=== PATIENT | female | born 1995 | race Caucasian/White ===

== ENCOUNTER 2019-05-06 07:56 | Inpatient (IN) | payer SELFPAY | END 2019-05-08 12:12 | disposition home or self-care (01) | DRG 807 | PROVIDERS: Admitting Provider Obstetrics & Gynecology; Family Provider Family Medicine; Visit Provider Obstetrics & Gynecology | DX: O48.0 Post-term pregnancy (principal); Z37.0 Single live birth; O99.824 Streptococcus B carrier state complicating childbirth; Z3A.41 41 weeks gestation of pregnancy; Z28.21 Immunization not carried out because of patient refusal ==

== ENCOUNTER → 2021-03-13 10:15 | Outpatient (BNVA) | payer SELFPAY | PROVIDERS: Family Provider Family Medicine; Visit Provider Nurse Practitioner Women's Health | DX: O09.299 Supervision of pregnancy with other poor reproductive or obstetric history, unspecified trimester (principal); O09.30 Supervision of pregnancy with insufficient antenatal care, unspecified trimester; Z3A.00 Weeks of gestation of pregnancy not specified | CPT/HCPCS: 80307; 81000; 81025; 85027; 86592; 86762; 86803; 86850; 86900; 87086; 87340 ==

== ENCOUNTER → 2021-03-21 13:32 | Outpatient (BNVA) | payer SELFPAY | PROVIDERS: Family Provider Family Medicine; Visit Provider Obstetrics & Gynecology | DX: Z34.80 Encounter for supervision of other normal pregnancy, unspecified trimester (principal) | CPT/HCPCS: 81000; 87491; 87591; 87661; 88175 ==

== ENCOUNTER → 2021-04-11 15:55 | Outpatient (BNVA) | payer SELFPAY | PROVIDERS: Family Provider Family Medicine; Visit Provider Obstetrics & Gynecology | DX: Z34.80 Encounter for supervision of other normal pregnancy, unspecified trimester (principal) | CPT/HCPCS: 81000 ==

== ENCOUNTER → 2021-05-13 16:22 | Outpatient (BNVA) | payer SELFPAY | PROVIDERS: Family Provider Family Medicine; Visit Provider Obstetrics & Gynecology | DX: O09.299 Supervision of pregnancy with other poor reproductive or obstetric history, unspecified trimester (principal); O09.30 Supervision of pregnancy with insufficient antenatal care, unspecified trimester; Z3A.00 Weeks of gestation of pregnancy not specified | CPT/HCPCS: 81000; 82950; 84443; 85025 ==

== ENCOUNTER → 2021-05-23 11:08 | Outpatient (BNVA) | payer SELFPAY | PROVIDERS: Family Provider Family Medicine; Visit Provider Obstetrics & Gynecology | DX: Z34.80 Encounter for supervision of other normal pregnancy, unspecified trimester (principal) | CPT/HCPCS: 81000 ==

== ENCOUNTER → 2021-06-06 11:00 | Outpatient (BNVA) | payer SELFPAY | PROVIDERS: Family Provider Family Medicine; Visit Provider Obstetrics & Gynecology | DX: O99.019 Anemia complicating pregnancy, unspecified trimester (principal); Z3A.00 Weeks of gestation of pregnancy not specified | CPT/HCPCS: 81000; 85018 ==

== ENCOUNTER → 2021-06-20 12:21 | Outpatient (BNVA) | payer SELFPAY | PROVIDERS: Family Provider Family Medicine; Visit Provider Obstetrics & Gynecology | DX: Z34.80 Encounter for supervision of other normal pregnancy, unspecified trimester (principal) | CPT/HCPCS: 81000 ==

== ENCOUNTER 2021-07-05 14:18 | Outpatient (CLI) | payer SELFPAY ==
[2021-07-05 14:18] VITALS: BMI 24.1
[2021-07-05 14:25] VITALS: RESP 16
--- NOTE | 2021-07-05 14:25 | US_ITS ---
WS: [id number] ULTRASOUND OB LIMITED TECHNIQUE: Limited ultrasound examination of the fetus. CLINICAL INFORMATION: EVELYNE AND GROWTH COMPARISON: March 21, 2021 FINDINGS: Closed cervix 3.9 cm Single interuterine gestation. presentation is vertex Placental location is anterior. Placenta grade: 1 heart rate 124 BPM. Anatomy: BDP: 8.5 cm = 34 weeks 3 days HC: 30.8 cm = 34 weeks 3 days AC: 29.6 cm = 33 weeks 4 days FEMUR LENGTH: 6.6 cm = 34 weeks 2 days Estimated weight: 5 lbs. 1 oz. 16th percentile EGA by ultrasound: 34 weeks 1 day BERNARDO by ultrasound: August 15, 2021 Biophysical profile 8 out of 8. breathin movement: 2 tone: 2 Amniotic fluid: 2 US/US OB BPP wo NST [id number] IMPRESSION: 1. Normal biophysical profile 8 out of 8 2. growth parameters at the 10th percentile or lower for gestational age .
[2021-07-05 14:33] VITALS: BP 107/60; PULSE 81; TEMP 36.4
[2021-07-05 14:49] VITALS: BP 105/60; PULSE 79
--- NOTE | 2021-07-05 15:04 | US_ITS ---
WS: [id number] ULTRASOUND OB LIMITED TECHNIQUE: Limited ultrasound examination of the fetus. CLINICAL INFORMATION: EVELYNE AND GROWTH COMPARISON: March 21, 2021 FINDINGS: Closed cervix 3.9 cm Single interuterine gestation. presentation is vertex Placental location is anterior. Placenta grade: 1 heart rate 124 BPM. Anatomy: BDP: 8.5 cm = 34 weeks 3 days HC: 30.8 cm = 34 weeks 3 days AC: 29.6 cm = 33 weeks 4 days FEMUR LENGTH: 6.6 cm = 34 weeks 2 days Estimated weight: 5 lbs. 1 oz. 16th percentile EGA by ultrasound: 34 weeks 1 day BERNARDO by ultrasound: August 15, 2021 Biophysical profile 8 out of 8. breathin movement: 2 tone: 2 Amniotic fluid: 2 US/US OB limited [id number] IMPRESSION: 1. Normal biophysical profile 8 out of 8 2. growth parameters at the 10th percentile or lower for gestational age .
[2021-07-05 15:25] VITALS: BP 109/66; PULSE 86
[2021-07-05 15:40] VITALS: BP 104/60; PULSE 75
== END 2021-07-05 15:55 | disposition home or self-care (01) ==
LOC: OPOB 14:21 → OBGYN 14:22
PROVIDERS: Family Provider Family Medicine; Visit Provider Obstetrics & Gynecology
DX: O36.8931 Maternal care for other specified fetal problems, third trimester, fetus 1 (principal); Z3A.34 34 weeks gestation of pregnancy; O36.5931 Maternal care for other known or suspected poor fetal growth, third trimester, fetus 1
CPT/HCPCS: 59025; 76815; 76819; 81000; 87081; 99211

== ENCOUNTER → 2021-07-22 10:10 | Outpatient (BNVA) | payer SELFPAY | PROVIDERS: Family Provider Family Medicine; Visit Provider Obstetrics & Gynecology | DX: Z34.80 Encounter for supervision of other normal pregnancy, unspecified trimester (principal); Z3A.00 Weeks of gestation of pregnancy not specified | CPT/HCPCS: 81000; 87086 ==

== ENCOUNTER 2021-07-31 16:50 | Inpatient (IN) | payer SELFPAY ==
[2021-07-31] VITALS (8 sets, daily range): BP systolic 107–129; BP diastolic 61–83; PULSE 65–98; RESP 14–17; TEMP 36.6; O2SAT 96–97; BMI 24.3
[2021-07-31] MEDS: dextrose 5%-lactated ringers 1,000 ML 125 ML IV (17:08)
[2021-07-31] MEDS: oxytocin 30 UNIT/500 ML BAG 600 UNIT IV (17:08)
[2021-07-31 17:16] LABS: Basophils % 0.1 %; Eosinophils % 0.4 %; Hematocrit 40.3 % (37.0-47.0); Hemoglobin 13.3 g/dL (11.5-15.3); Lymphocytes # 1.6 10^3/uL (0.8-4.8); Lymphocytes % 16.2 %; Mean Corpuscular Hemoglobin 30.2 pg (28.0-34.0); Mean Corpuscular Volume 91.4 fl (81-99); Mean Platelet Volume 10.1 fL (7.4-10.4); Monocytes # 0.5 10^3/uL (0.2-0.9); Monocytes % 4.5 %; Neutrophils # 7.84 10^3/uL (1.8-7.7); Neutrophils % 78.4 %; Nucleated Red Blood Cells % 0 %; Platelet Count 188 10^3/cmm (130-400); Red Blood Count 4.41 10^6/uL (4.1-5.3); Red Cell Distribution Width 13.4 % (12.1-15.1)
--- NOTE | 2021-07-31 17:19 | PM.DELIVERY ---
Delivery Note: Date of delivery: July 31, 2021 Pre-delivery diagnoses: iup At 40 weeks 1 day Post-delivery diagnoses: same- delivered Procedure: Delivering Physician: Se Estimated blood loss (mL): 20 Findings: term female in the RICKY presentation Pre-Delivery Course: The patient presented to labor and delivery with complete cervical dilation and intact bag of water. Delivery: Once I arrived, the patient began pushing. The head delivered in the RICKY position over an intact perineum under no anesthesia. The nose and mouth were bulb suctioned. The shoulders and body delivered atraumatically. The baby was placed onto the mother's abdomen. The cord was clamped and cut. Cord blood was obtained. The placenta delivered spontaneously. It was inspected and found to be intact. Inspection of the perineum revealed no laceration and no repair required. Estimated blood loss 20 mL. Apgars on baby were 9 at 1 minute and 9 at 5 minutes. Weight of baby is pending. Mother and baby were stable post delivery. History History History 3 Term 2 Miscarriages/Ectopic 0 0 Living Children 2 Coding Level of Care Code Acute Mysql Database Administrator for Chg Omkar
[2021-07-31] MEDS: ibuprofen 800 mg tablet PO (21:18)
[2021-08-01 01:10] VITALS: BP 95/58; PULSE 65; RESP 14; O2SAT 96
[2021-08-01 04:37] VITALS: BP 105/64; PULSE 67; O2SAT 97
[2021-08-01 06:11] LABS: Hematocrit 33.9 % (37.0-47.0); Hemoglobin 11.2 g/dL (11.5-15.3); Mean Corpuscular Hemoglobin 30.4 pg (28.0-34.0); Mean Corpuscular Volume 91.9 fl (81-99); Mean Platelet Volume 9.7 fL (7.4-10.4); Platelet Count 156 10^3/cmm (130-400); Red Blood Count 3.69 10^6/uL (4.1-5.3); Red Cell Distribution Width 13.5 % (12.1-15.1); White Blood Count 9.5 10^3/uL (4.0-10.0)
--- NOTE | 2021-08-01 08:14 | P.DS_ITS ---
Discharge Providers Date of Admission: 07/31/21 16:50 Date of Discharge: August 01, 2021 Attending Provider at Admission: Sadie Saez MD Attending Provider at Discharge: Sadie Saez MD Reason for Visit Reason for Visit: Contractions Hospital Course Hospital Course The patient was admitted in active labor. She had spontaneous delivery of a term . She did well and was ready for discharge on day #1 Physical Exam Narrative: The patient is doing well. No concerns this morning. She is requesting discharge today. Const: COMMON NORMALS: no acute distress, average body habitus, patient oriented x3, no limitations, healthy appearing, alert and well nourished GENERAL APPEARANCE: cooperative, comfortable, well kempt and well developed ORIENTATION/CONSCIOUSNESS: Yes awake, Yes oriented to person, Yes oriented to place and Yes oriented to time Resp: COMMON NORMALS: normal respiratory effort EFFORT & INSPECTION: Yes able to speak in complete sentences GI: COMMON NORMALS: Soft to palpation and non-tender PALPATION: Yes Soft to palpation Extremity: COMMON NORMALS: no calf tenderness Neuro: COMMON NORMALS: patient oriented x3 SENSORIUM/ORIENTATION: Yes alert, Yes oriented to person, Yes oriented to place and Yes oriented to time Psych: APPEARANCE: Yes well kempt Discharge Data Studies Completed and Pending Laboratory Results WBC 9.5 10^3/uL (4.0-10.0) 08/01/21 06:00 RBC 3.69 10^6/uL (4.1-5.3) L 08/01/21 06:00 Hgb 11.2 g/dL (11.5-15.3) L 08/01/21 06:00 Hct 33.9 % (37.0-47.0) L 08/01/21 06:00 MCV 91.9 fl (81-99) 08/01/21 06:00 MCH 30.4 pg (28.0-34.0) 08/01/21 06:00 MCHC 33.0 g/dL (30.0-36.0) 08/01/21 06:00 RDW 13.5 % (12.1-15.1) 08/01/21 06:00 Plt Count 156 10^3/cmm (130-400) 08/01/21 06:00 MPV 9.7 fL (7.4-10.4) 08/01/21 06:00 Neut % (Auto) 78.4 % 07/31/21 16:55 Lymph % (Auto) 16.2 % 07/31/21 16:55 [place] % (Auto) 4.5 % 07/31/21 16:55 Eos % (Auto) 0.4 % 07/31/21 16:55 Baso % (Auto) 0.1 % 07/31/21 16:55 Neut # (Auto) 7.84 10^3/uL (1.8-7.7) H 07/31/21 16:55 Lymph # (Auto) 1.6 10^3/uL (0.8-4.8) 07/31/21 16:55 [place] # (Auto) 0.5 10^3/uL (0.2-0.9) 07/31/21 16:55 Eos # (Auto) 0.0 10^3/uL (0.0-0.8) 07/31/21 16:55 Baso # (Auto) 0.0 10^3/uL (0.0-0.1) 07/31/21 16:55 Nucleated RBC % (auto) 0 % 07/31/21 16:55 Nucleated RBCs # 0.0 /100WBC 07/31/21 16:55 Vitals Last Vital Signs Pulse 67 08/01/21 04:37 Resp 14 08/01/21 01:10 BP 105/64 08/01/21 04:37 Pulse Ox 97 08/01/21 04:37 Discharge Plan Discharge Patient Disposition: Home Condition: Stable Prescriptions: Continued prenat.vits,moe,[id number]-awpyg Tablet 1 tab PO DAILY 0RF Probiotic 3 billion cell capsule 3,000 mmu cells PO DAILY 0RF Rx Instructions: administer with a meal digestive enzymes Capsule 1 cap PO DAILY 0RF Rx Instructions: administer with food; swallow whole; do not crush/chew/dissolve/break/cut lecithin 518 mg capsule 518 mg PO BID 0RF easy birthing PO BID 0RF evening primrose oil 500 mg capsule 500 mg PO BID 0RF Rx Instructions: give with meal/snack ferrous fumarate 324 mg (106 mg iron) tablet 324 mg PO BID 0RF master gland PO TID 0RF calcium carbonate 260 mg calcium (648 mg) tablet 260 mg PO DAILY 0RF magnesium 30 mg tablet 30 mg PO DAILY 0RF Discharge Orders: Discharge Order (Routine); Ordered 08/01/21 Ordered By: Sadie Saez Patient Instructions: Depression (DC), Bleeding (DC), Preeclampsia and Eclampsia After Delivery (GEN), OB Discharge Report, OB Food/Drug Interaction Guide, OB Care at Home, Opioid Safety, OB Home Care, OB Proud Parent Packet, OB Vaginal Deliveries - [facility], Abnormal Bleeding Discharge Attestations Time Spent in Discharge Care*: less than 30 min Quality Metrics Clinical Quality Measures [ No reported AMI, CVA or VTE this stay] Coding Level of Care Code Acute Chg FW DC note
[2021-08-01 10:45] VITALS: BP 103/64; PULSE 88; RESP 16; TEMP 36.8; O2SAT 97
[2021-08-01] MEDS: prenatal vitamin Capsule 1 CAP PO (10:45)
[2021-08-01] MEDS: ibuprofen 800 mg tablet PO ×2 (10:45→15:25)
[2021-08-01 16:59] VITALS: PULSE 88; RESP 16; TEMP 36.8; O2SAT 97
[2021-08-01 19:29] VITALS: BP 99/60; PULSE 87; RESP 18; TEMP 36.5; O2SAT 98
== END 2021-08-01 19:05 | disposition home or self-care (01) | DRG 807 ==
LOC: OPOB 16:50 → OBGYN 16:50
PROVIDERS: Admitting Provider Obstetrics & Gynecology; Family Provider Family Medicine; Visit Provider Obstetrics & Gynecology
DX: O99.02 Anemia complicating childbirth (principal); Z37.0 Single live birth; D64.9 Anemia, unspecified; Z3A.40 40 weeks gestation of pregnancy
CPT/HCPCS: 36415; 59025; 59409; 81000; 85025; 85027; 87635; 99211

== ENCOUNTER 2023-02-25 02:22 | Observation (INO) | payer SELFPAY ==
[2023-02-25] VITALS (29 sets, daily range): BP systolic 63–144; BP diastolic 31–95; PULSE 81–137; RESP 10–20; TEMP 36.7–37.4; O2SAT 99–100; BMI 21.2
--- NOTE | 2023-02-25 02:36 | ED_ITS ---
HPI - General: Chief complaint: OB/Uterine Contractions Stated complaint: miscarrage, hemoraging Time Seen by Provider: 02/25/23 02:23 Source: patient Mode of arrival: ambulatory Limitations: no limitations History of Present Illness: 27-year-old female states she is 9 weeks she states she started having bleeding throughout the night she states that she believes she had passed prod ucts of conception states she had some heavy bleeding with passing clots she states she felt like it slowed down a little she denies any pain had some mild lightheadedness she denies any worsening proving factors. Associated symptoms: Deny abdominal pain, headache(s), nausea or vomiting Review of Systems Const: Denies: fever(s), chills, body aches or change in appetite Eyes: Denies: blurry vision or eye discomfort ENMT: Denies: throat pain or dental pain Card: Denies: chest pain Resp: Denies: dyspnea GI: Denies: abdominal pain, nausea, vomiting or diarrhea : Reports: vaginal bleeding Musc: Denies: neck pain or back pain Skin/Breast: Denies: rash Neuro: Denies: headache(s) PFSH ED PFSH: Medical History No pertinent past medical history neg dx- htn,dm,dvt/pe,thyroid PCP: none Surgical History No pertinent past surgical history Family History Denies family history of Colon cancer Ovarian cancer Diabetes Clotting disorder Breast cancer Bleeding disorder Cancer Hypertension Uterine cancer Stroke Physical Exam Const: COMMON NORMALS: patient oriented x3 HENMT: COMMON NORMALS: normocephalic and atraumatic HEAD & SCALP: normocephalic and atraumatic Neck/C-Spine: COMMON NORMALS: full ROM and supple Chest: COMMONS NORMALS: normal inspection of the chest Resp: COMMON NORMALS: normal respiratory effort Cardio: COMMON NORMALS: regular rhythm and No murmurs present (Cardio) RATE: tachycardic RHYTHM: regular rhythm GI: COMMON NORMALS: Normal to inspection, nondistended, normoactive bowel sounds present, Soft to palpation, non-tender and no masses PALPATION: Yes Soft to palpation : OTHER: Large amount of blood and clots in vaginal vault she did have clot stuck at the cervix it was removed Extremity: COMMON NORMALS: normal to inspection and full ROM Neuro: COMMON NORMALS: patient oriented x3, moves all extremities and no focal motor deficits Psych: COMMON NORMALS: mental status grossly normal, Normal thought process present and cooperative THOUGHT PROCESS: Normal thought process present Skin: COMMON NORMALS: no rashes or lesions noted and no wounds GENERAL SKIN EXAM: no rashes or lesions noted Course Vital Signs: Vital signs: Vital Signs Temperature 98.0 F 02/25/23 02:24 Pulse Rate 115 H 02/25/23 02:59 Respiratory Rate 18 02/25/23 02:59 Blood Pressure 91/66 02/25/23 02:59 Pulse Oximetry 100 02/25/23 02:59 Oxygen Delivery Me thod Room Air 02/25/23 02:44 MDM - OB/Uterine Contractions Medical Decision Making Patient presents here with vaginal bleeding she had a large amount of bleeding on pelvic exam her bleeding has slowed down since then her hemoglobin has basim pped 3 points her orthostatic vitals currently are normal and her blood pressure is improved did give her me supposed I did speak to the NURSING TECHNICIAN Dr. Travis verduzco still has some slight bleeding he is planning on taking her to have a D&C Medical Records I reviewed the patient's medical records. Lab Data I reviewed the patient's lab results. 02/25/23 03:33 Laboratory Results WBC 11.58 10^3/uL (3.29-11.43) H 02/25/23 02:30 RBC 4.21 10^6/uL (3.85-5.65) 02/25/23 02:30 Hgb 8.40 g/dL (11.27-16.99) L 02/25/23 03:33 Hct 26.8 % (36-47) L 02/25/23 03:33 MCV 86.0 fl (85-98) 02/25/23 02:30 MCH 27.6 pg (27-33) 02/25/23 02:30 MCHC 32.0 g/dL (30-55) 02/25/23 02:30 RDW 13.2 % (12.1-15.1) 02/25/23 02:30 Plt Count 215 10^3/cmm (157-399) 02/25/23 02:30 MPV 9.6 fL (7.4-10.4) 02/25/23 02:30 Neut % (Auto) 75.3 % 02/25/23 02:30 Lymph % (Auto) 17.5 % 02/25/23 02:30 [place] % (Auto) 4.6 % 02/25/23 02:30 Eos % (Auto) 2.0 % 02/25/23 02:30 Baso % (Auto) 0.3 % 02/25/23 02:30 Neut # (Auto) 8.71 10^3/uL (1.8-7.7) H 02/25/23 02:30 Lymph # (Auto) 2.0 10^3/uL (0.8-4.8) 02/25/23 02:30 [place] # (Auto) 0.5 10^3/uL (0.2-0.9) 02/25/23 02:30 Eos # (Auto) 0.2 10^3/uL (0.0-0.8) 02/25/23 02:30 Baso # (Auto) 0.0 10^3/uL (0.0-0.1) 02/25/23 02:30 Nucleated RBC % (auto) 0 % 02/25/23 02:30 Nucleated RBCs # 0.0 /100WBC 02/25/23 02:30 Ser , Semi-Qnt 94116.00 mIU/mL 02/25/23 02:30 Antibody Screen Negative 02/25/23 02:30 No radiology studies performed this visit Critical Care Time Critical Care Time: Critical Care Time: Yes Total Critical Care Time: 35 Attestation: The high probability of a clinically significant, sudden or life threatening deterioration of the patient's gu system(s) required my full and direct attention, intervention and personal management. The critical care time is as shown. This time is in addition to time spent performing any reported procedures but includes the following: [x] Data and vital sign review and interpretation [x] Patient assessment, examination and intervention [x] Documentation [x] Medication orders and management Discharge Plan Discharge Patient Disposition: Admitted As Inpatient Clinical Impression: Miscarriage Condition: Stable Prescriptions: No Action prenat.vits,moe,iec-wdsz-wvxyx Tablet 1 tab PO DAILY Probiotic 3 billion cell capsule 3,000 mmu cells PO DAILY Rx Instructions: administer with a meal digestive enzymes Capsule 1 cap PO DAILY Rx Instructions: administer with food; swallow whole; do not crush/chew/dissolve/break/cut lecithin 518 mg capsule 518 mg PO BID easy birthing PO BID evening primrose oil 500 mg capsule 500 mg PO BID Rx Instructions: give with meal/snack ferrous fumarate 324 mg (106 mg iron) tablet 324 mg PO BID master gland PO TID calcium carbonate 260 mg calcium (648 mg) tablet 260 mg PO DAILY magnesium 30 mg tablet 30 mg PO DAILY Coding Level of Care Code ED Teacher Adventure Education for Ellen Espitia
[2023-02-25 02:39] LABS: Basophils % 0.3 %; Eosinophils # 0.2 10^3/uL (0.0-0.8); Hematocrit 36.2 % (36-47); Lymphocytes % 17.5 %; Mean Corpuscular Hemoglobin 27.6 pg (27-33); Mean Platelet Volume 9.6 fL (7.4-10.4); Monocytes # 0.5 10^3/uL (0.2-0.9); Monocytes % 4.6 %; Neutrophils # 8.71 10^3/uL (1.8-7.7); Neutrophils % 75.3 %; Nucleated Red Blood Cells % 0 %; Platelet Count 215 10^3/cmm (157-399); Red Blood Count 4.21 10^6/uL (3.85-5.65); Red Cell Distribution Width 13.2 % (12.1-15.1); White Blood Count 11.58 10^3/uL (3.29-11.43)
[2023-02-25] MEDS: sodium chloride 0.9% 1,000 ML 999 ML IV ×2 (02:51→02:57)
[2023-02-25] MEDS: miSOPROStol 200 mcg Tablet 800 MCG PR (02:55)
--- NOTE | 2023-02-25 03:32 | PC.NURSE ---
Checked bleeding status of patient post medication admin. Pt still having moderated constant bleeding. Removed 2 blue chuxs pads and replaced. Dr Berg notified.
[2023-02-25 03:37] LABS: Hematocrit 26.8 % (36-47)
--- NOTE | 2023-02-25 04:12 | PC.NURSE ---
pt was removed from the bedpan at this time. pt had a small BM. pt is still having moderate bleeding
--- NOTE | 2023-02-25 05:42 | PM.OBGYHP ---
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 LMP approximately 9 weeks ago No care so far Presented to ER with vaginal bleeding, which began at 2330 on February 24, 2023 Bleeding progressed to large amount with large clots + cramping In ER, patient passed large amount of blood and clots Hgb 2300 11.2 0330 8.4 PMHx: none PSHx: none Meds: none NKDA Medications/Allergies Home Medications Medication Instructions Recorded Confirmed Last Taken Type prenat.vits,moe,eaa-mfzo-zwzvs 1 tab PO DAILY 03/13/21 09/09/21 Unknown History calcium carbonate 260 mg calcium 260 mg PO DAILY 03/21/21 09/09/21 Unknown History (648 mg) tablet magnesium 30 mg tablet 30 mg PO DAILY 03/21/21 09/09/21 Unknown History digestive enzymes 1 cap PO DAILY 04/11/21 09/09/21 Unknown History lactobacillus combination no.4 3 3,000 mmu cells PO DAILY 04/11/21 09/09/21 Unknown History billion cell capsule (Probiotic) easy birthing PO BID 07/05/21 09/09/21 Unknown History evening primrose oil 500 mg capsule 500 mg PO BID 07/05/21 09/09/21 Unknown History lecithin 518 mg capsule 518 mg PO BID 07/05/21 09/09/21 Unknown History ferrous fumarate 324 mg (106 mg 324 mg PO BID 07/31/21 09/09/21 Unknown History iron) tablet master gland PO TID 07/31/21 09/09/21 Unknown History Allergies Allergy/AdvReac Type Severity Reaction Status Date / Time No Known Allergies Allergy Verified 02/25/23 02:29 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 PFSH: Medical History No pertinent past medical history neg dx- htn,dm,dvt/pe,thyroid PCP: none Surgical History No pertinent past surgical history Family History Denies family history of Colon cancer Ovarian cancer Diabetes Clotting disorder Breast cancer Bleeding disorder Cancer Hypertension Uterine cancer Stroke History History History 3 Term 2 0 Miscarriages/Ectopic 0 Living Children 2 Vitals/I&O/Wt Last Vital Signs Temp 98.0 F 02/25/23 02:24 Pulse 114 H 02/25/23 05:00 Resp 17 02/25/23 05:00 BP 99/69 02/25/23 05:00 Pulse Ox 99 02/25/23 05:00 O2 Del Method Room Air 02/25/23 04:00 02/24/23 02/24/23 02/25/23 14:59 22:59 06:59 Intake Total 1999 Balance 1999 Weight last 48 hrs Weight 128 lb Physical Exam Narrative: Weight 128 lbs Comfortable, awake, alert Appears pale Lungs: clear Cor: RRR Abd: soft, nontender Data 02/25/23 03:33 Other Labs: Blood type AB + Results Labs OB ([facility]): Obstetrics US 07/05/21 Obstetrics US/Biophysical Profile 07/05/21 Blood Type AB Positive 02/25/23 Antibody Screen Negative 02/25/23 Hct 26.8 % (36-47) L 02/25/23 Hgb 8.40 g/dL (11.27-16.99) L 02/25/23 Rho(D) Type Positive 02/25/23 Plt Count 215 10^3/cmm (157-399) 02/25/23 Hep Bs Antigen Non-reactive (Nonreactive) 03/13/21 Hepatitis C Antibody Non-reactive (Nonreactive) 03/13/21 Rubella IgG Antibody 18.1 IU/mL (0.0-10.0) H 03/13/21 RPR Nonreactive (Nonreactive) 03/13/21 TSH 2.93 uIU/mL (0.27-4.20) 05/13/21 Urine Protein Neg (Negative) 07/31/21 Urine Glucose (UA) Norm (Normal) 07/31/21 Gest Glucose Tolerance 131 mg/dL 05/13/21 A&P Assessment and plan (1) Incomplete : Approx. 9 weeks gestation Large amount of vaginal bleeding with clots Most likely incomplete SAB Recommend suction curettage of uterus Procedure and risks explained to patient Risks include, but are not limited to, infection; bleeding; injury to internal organs, such as uterus, bowel; anesthesia; blood transfusions Patient understands and wants to proceed Attestations Medical Necessity Statement*: patient at approximately 9 weeks gestation with large amount of bleeding and clots, incomplete SAB Coding Level of Care Code Acute Code for Chg Fwd Diagnoses Incomplete O03.4 Time Spent (min) 60
--- NOTE | 2023-02-25 06:04 | PC.NURSE ---
Patient taken to OR for D&C by Milagro from OR
--- NOTE | 2023-02-25 06:54 | ANES.PREANE2 ---
Pre-Anesthetic Assessment Height/Weight: Height 1.65 m Weight 58.06 kg Temp Pulse Resp BP Pulse Ox O2 Del Method 98.8 F 106 H 17 103/63 99 Room Air 02/25/23 06:17 02/25/23 06:17 02/25/23 06:17 02/25/23 06:17 02/25/23 06:17 02/25/23 06:17 Operation Date: 02/25/23 07:00 Proposed Procedures p Dilation And Curettage w/ Suction(Not Applicable) - Benson Robles MD Familial anesthetic complications: nonr Was Beta Elan taken within 24 hours: N/A Was Clonidine taken within 24 hours: N/A Last intake: Intake Last Liquid Date 02/24/23 Last Liquid Time 21:00 Last Solid Date 02/24/23 Last Solid Time 19:00 Social No alcohol and No tobacco Exam alert, oriented x 3, clear to auscultation bilaterally and regular rate & rhythm Airway Mallampati: Class I Dentition: other (missing) CV/HEM Anemia Anesthetic Plan ASA status: 2 Anesthesia: General Risk of > 500 ml blood loss (7ml/kg in children): No Medications/Allergies Home Medications Medication Instructions Recorded Confirmed Last Taken Type prenat.vits,moe,mij-zsds-zgdsa 1 tab PO DAILY 03/13/21 09/09/21 Unknown History calcium carbonate 260 mg calcium 260 mg PO DAILY 03/21/21 09/09/21 Unknown History (648 mg) tablet magnesium 30 mg tablet 30 mg PO DAILY 03/21/21 09/09/21 Unknown History digestive enzymes 1 cap PO DAILY 04/11/21 09/09/21 Unknown History lactobacillus combination no.4 3 3,000 mmu cells PO DAILY 04/11/21 09/09/21 Unknown History billion cell capsule (Probiotic) easy birthing PO BID 07/05/21 09/09/21 Unknown History evening primrose oil 500 mg capsule 500 mg PO BID 07/05/21 09/09/21 Unknown History lecithin 518 mg capsule 518 mg PO BID 07/05/21 09/09/21 Unknown History ferrous fumarate 324 mg (106 mg 324 mg PO BID 07/31/21 09/09/21 Unknown History iron) tablet master gland PO TID 07/31/21 09/09/21 Unknown History Allergies Allergy/AdvReac Type Severity Reaction Status Date / Time No Known Allergies Allergy Verified 02/25/23 02:29 [facility] Anesthesia Medical History No pertinent past medical history neg dx- htn,dm,dvt/pe,thyroid PCP: none Surgical History No pertinent past surgical history Family History Denies family history of Colon cancer Ovarian cancer Diabetes Clotting disorder Breast cancer Bleeding disorder Cancer Hypertension Uterine cancer Stroke Data Anesthesia 02/25/23 03:33 Short CBC 02/25/23 02/25/23 Range/Units 02:30 03:33 WBC 11.58 H (3.29-11.43) 10^3/uL Hgb 11.60 8.40 L (11.27-16.99) g/dL Hct 36.2 26.8 L (36-47) % MCV 86.0 (85-98) fl Plt Count 215 (157-399) 10^3/cmm Neut % (Auto) 75.3 % Neut # (Auto) 8.71 H (1.8-7.7) 10^3/uL Blood Bank 02/25/23 02:30 Blood Type AB Positive Rho(D) Type Positive Antibody Screen Negative Cardiac Studies: No Data to Display
[2023-02-25] MEDS: sodium chloride 0.9% 1,000 ML 30 ML IV (06:58)
[2023-02-25 07:04] LABS: Hematocrit 26.3 % (36-47)
[2023-02-25] MEDS: methylergonovine 0.2 mg/mL INJ 1 mL IM (07:45)
--- NOTE | 2023-02-25 07:50 | PM.OP ---
Operative Report Date of procedure: February 25, 2023 Pre-op diagnosis: incomplete spontaneous Post-op diagnosis: same Post-op findings: uterus sounded to 12 cm Products of conception Procedure done: suction curettage of uterus Implants: none Specimens removed/disposition: products of conception Surgeon: Benson Robles MD Anesthesia: General Estimated blood loss (mL): 100 Complications: none Condition: stable Disposition: PACU Brief History: 27 y.o. LMP approximately 9 weeks ago Presented to ER with vaginal bleeding, which began at 2330 on February 24, 2023 Bleeding progressed to large amount with large clots + cramping In ER, patient passed large amount of blood and clots Procedure: Informed consent signed The patient was taken to the operating room. General anesthesia was induced. The patient was placed in dorsolithotomy position. The perineum was prepped and draped in the usual fashion. A bivalve speculum was placed in the vagina. The anterior lip of the cervix was grasped with a sharp-toothed tenaculum. The uterus was sounded to 12 cm. The cervix was widely dilated with blood clots. A #10 curved suction curette was used to empty the contents of the uterus. Products of conception were obtained and sent to pathology. A sharp curette, followed again by the suction curette, were used to evacuate the uterus. No bleeding was seen. All instruments were then removed from the uterus, cervix and vagina. No bleeding was seen from the cervix. The patient was then placed supine, awakened, and taken to the recovery room. Postop condition: stable EBL: 100 cc Complications: none Sponge/instruments counts correct x two
== END 2023-02-25 13:25 | disposition home or self-care (01) ==
LOC: ER 03:54 → OBGYN 04:49
PROVIDERS: Admitting Provider Obstetrics & Gynecology; Emergency Provider Emergency Medicine; Visit Provider Obstetrics & Gynecology
PROC: (CPT 59812; principal; 2023-02-25 07:00)
DX: O03.4 Incomplete spontaneous abortion without complication (principal)
CPT/HCPCS: 59812; 84702; 85014; 85018; 85025; 86850; 86900; 88305; 99285; E0352; G0378; J0330; J1100; J2210; J2405; J2704; J3010; J7030; P9045